=== PATIENT | male | born 1990 | race African-American/Black ===

== ENCOUNTER 2016-12-21 18:39 | Emergency (ER) | payer OTHER ==
[~2016-12-21] VITALS: Ht 177.8 cm; Wt 110.7 kg
[~2016-12-21 18:39] MED LIST: MOBI15TA PO
[2016-12-21 18:47] VITALS: BP 166/97; PULSE 88; RESP 16; TEMP 99.1; O2SAT 98
[2016-12-21] MEDS ORDERED: CETI10 PO (19:10)
[2016-12-21 19:23] VITALS: BP 136/89; PULSE 83; RESP 18; TEMP 98.8; O2SAT 97
--- NOTE | 2016-12-21 19:27 | PD ---
HPI Chief Complaint: Complaint Time Seen by Provider: 19:21 Travel History International Travel<30 days: No Contact w/Intl Traveler<30days: No Traveled to known affect area: No History of Present Illness HPI 26 year old male presents for complaint of 2 days of dysuria and penile discharge. Patient is sexually active reportedly was 1 partner. Patient denies prior history of sexually transmitted infection or disease. Patient states one prior episode of urinary tract infection. Patient denies any abdominal pain. Patient denies fever chills flank pain hematuria or urinary frequency. No testicular pain or swelling. No nausea or vomiting. Patient rates discomfort with urination 5/10 in intensity. Patient has taken no medications. Patient denies history of diabetes or other medical conditions. No previous surgeries. No injury or trauma. PFSH Past Medical History Narrative Medical uti no tobacco; nursing notes reviewed Medical History: Denies Significant Hx Diminished Hearing: No Immunizations Current: Yes Tetanus Vaccination: < 5 Years Influenza Vaccination: Yes Past Surgical History Surgical History: No Previous Surgery Social History Alcohol Use: No Tobacco Use: No Substance Use: No Allergies-Medications (Allergen,Severity, Reaction): Coded Allergies: No Known Allergies (Verified , 12/21/16) Reported Meds & Prescriptions Reported Meds & Active Scripts Active Doxycycline Hyclate 100 Mg Cap 100 Mg PO BID 7 Days Reported Cetirizine (Cetirizine HCl) 10 Mg Tab 10 Mg PO DAILY Review of Systems Except as stated in HPI: all other systems reviewed are Neg General / Constitutional: No: Fever, Chills HENT: No: Sore Throat, Congestion Cardiovascular: No: Chest Pain or Discomfort Respiratory: No: Shortness of Breath Gastrointestinal: No: Nausea, Vomiting Genitourinary: Positive: Dysuria, Discharge, No: Urgency, Frequency, Hematuria , Flank Pain Musculoskeletal: No: Myalgias, Arthralgias Skin: No Rash Neurologic: No: Weakness Psychiatric: No: Anxiety Hematologic/Lymphatic: No: Lymph Node Enlargement Physical Exam Narrative GENERAL: Well developed well nourished male in no distress SKIN: Warm and dry. HEAD: Normocephalic. EYES: No scleral icterus. No injection or drainage. NECK: Supple, trachea midline. No JVD or lymphadenopathy. CARDIOVASCULAR: Regular rate and rhythm without murmurs, gallops, or rubs. RESPIRATORY: Breath sounds equal bilaterally. No accessory muscle use. GASTROINTESTINAL: Abdomen soft, non-tender, nondistended. : circumcised male no edema erythema tenderness discharge bilaterally descended testicles without swelling tenderness mass cremasteric reflex is present MUSCULOSKELETAL: No cyanosis, or edema. BACK: Nontender without obvious deformity. No CVA tenderness. Data Data Last Documented VS Vital Signs Date Time Temp Pulse Resp B/P (MAP) Pulse Ox O2 Delivery O2 Flow Rate FiO2 12/21/16 21:10 68 18 135/83 (100) 98 12/21/16 19:23 98.8 Room Air Orders Orders Urinalysis - C+S If Indicated (12/21/16 19:21) Gc And Chlamydia Pcr (12/21/16 19:21) Ceftriaxone Inj (Rocephin Inj) (12/21/16 19:30) Lidocaine 1% Inj (50 Ml) (Xylocaine 1% I (12/21/16 19:30) Azithromycin Powd Pack (Zithromax Powd P (12/21/16 19:30) Urine Culture (12/21/16 19:40) Labs Laboratory Tests Test 12/21/16 19:40 Urine Color YELLOW Urine Turbidity HAZY Urine pH 6.0 Urine Specific Riley 1.028 Urine Protein NEG mg/dL Urine Glucose (UA) NEG mg/dL Urine Ketones TRACE mg/dL Urine Occult Blood MOD Urine Nitrite NEG Urine Bilirubin NEG Urine Leukocyte Esterase SMALL Urine RBC 10-14 /hpf Urine WBC 25-49 /hpf Urine WBC Clumps FEW Urine Squamous Epithelial Cells 0-5 /hpf Urine Bacteria RARE /hpf Microscopic Urinalysis Comment CULTURE INDICATED Chlamydia trachomatis DNA (PCR) NOT DETECTED Neisseria gonorrhoeae DNA (PCR) DETECTED MDM Medical Decision Making Medical Screen Exam Complete: Yes Emergency Medical Condition: Yes Medical Record Reviewed: Yes Interpretation(s) Positive leukocyte Estrace positive white blood cells clumped white blood cells positive blood RBCs few bacteria; culture indicated Differential Diagnosis urethritis, uti, epididymitis Narrative Course Specimens collected and sent for resulting Patient presumptively administered azithromycin and Rocephin Urinalysis is positive for white blood cells therefore patient will be given prescription for doxycycline Patient is stable for outpatient management and follow-up with primary care provider Diagnosis Primary Impression: Urethritis Referrals: Primary Care Physician call for appointment Patient Instructions: General Instructions Additional Instructions: Increase fluid hydration Take antibiotic as prescribed Remains sexually abstinent Return to the emergency department for any concerns or change in condition May take [id number] acetaminophen or ibuprofen per package instructions for mild to moderate discomfort/pain Med/Other Pt SpecificInfo: Prescription(s) given Scripts Doxycycline Hyclate (Doxycycline Hyclate) 100 Mg Cap 100 MG PO BID for Infection for 7 Days, CAP 0 Refills Prov: Kelly Porter MD 12/21/16 Disposition: 01 DISCHARGE HOME Condition: Stable eKlly Porter MD Dec 21, 2016 19:27
[2016-12-21] MEDS ORDERED: LIDOCAINE HCL 1% 50 ML VIAL XX ONE (19:30)
[2016-12-21] MEDS ORDERED: AZITHROMYCIN PWD FOR SUSP 1 GM PACKET PO ONE (19:30)
[2016-12-21] MEDS ORDERED: cefTRIAXone 250 MG VIAL IM ONE (19:30)
[2016-12-21 19:50] LABS: BLOOD, URINE MOD (NEG); GLUCOSE,URINE NEG (NEG); KETONE, URINE TRACE mg/dL (NEG); NITRITE,URINE NEG (NEG)
[2016-12-21 20:00] LABS: URINE COLOR YELLOW (YELLW/STRAW)
[2016-12-21 20:02] LABS: SQUAMOUS EPITHELIAL CELL URINE 0-5 /hpf (0-5)
[2016-12-21 20:03] LABS: BACTERIA, URINE RARE /hpf; COMMENT (UR) CULTURE INDICATED; CULTURE IF INDICATED CULTURE INDICATED
[2016-12-21] MEDS ORDERED: DOXY100C PO (20:28)
[2016-12-21 21:10] VITALS: BP 135/83
[2016-12-22 02:38] LABS: CHLAMYDIA PCR NOT DETECTED (NOT DETECT); NEISSERIA PCR DETECTED (NOT DETECT)
== END 2016-12-21 21:12 | disposition home or self-care (01) ==
LOC: PHED 18:39
DX: N34.2 Other urethritis (principal)
CPT/HCPCS: 81001; 87086; 87491; 87591; 96372; 99284; J0696